=== PATIENT | male | born 1940 | race Caucasian/White ===

== ENCOUNTER 2017-05-20 19:06 | Emergency (ER) | payer MEDICARE, OTHER ==
[~2017-05-20] VITALS: Ht 177.8 cm; Wt 90.7 kg
[2017-05-20 19:13] VITALS: BP 173/94
[2017-05-20] MEDS ORDERED: Methocarbamol 750mg tab ORAL ONE (20:15)
[2017-05-20] MEDS ORDERED: TYLENOL EXTRA500 MG ORAL (20:32)
[2017-05-20] MEDS ORDERED: ROBAXIN-750750 MG PO (20:32)
[2017-05-20 20:45] VITALS: BP 173/94
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
== END 2017-05-20 20:59 | disposition home or self-care (01) ==
LOC: EDBD 19:06 → EMR 20:51
DX: S46.912A Strain of unspecified muscle, fascia and tendon at shoulder and upper arm level, left arm, initial encounter (principal); V43.62XA Car passenger injured in collision with other type car in traffic accident, initial encounter; Y92.410 Unspecified street and highway as the place of occurrence of the external cause; Z88.0 Allergy status to penicillin; N40.0 Benign prostatic hyperplasia without lower urinary tract symptoms
CPT/HCPCS: 99284